=== PATIENT | male | born 1970 | race African-American/Black ===

== ENCOUNTER → 2016-08-20 | Outpatient (CLI) | payer OTHER ==
--- NOTE | 2016-08-20 17:32 | CARD ---
APPROVED REPORT EXAM: Two-dimensional and M-mode echocardiogram with Doppler and color Doppler. Other Information Quality : Average Rhythm : NSR INDICATION Cardiac Disease: CAD 2D DIMENSIONS RVDd3.2 (2.9-3.5cm)Left Atrium(2D)3.4 (1.6-4.0cm) IVSd1.1 (0.7-1.1cm)Aortic Root(2D)3.1 (2.0-3.7cm) LVDd4.6 (3.9-5.9cm)LVOT Diameter2.2 (1.8-2.4cm) PWd1.1 (0.7-1.1cm)LVDs3.1 (2.5-4.0cm) FS (%) 31.0 %SV55.9 ml LVEF(%)58.8 (>50%) Aortic Valve AoV Peak Kendell.102.9cm/sAoV VTI21.2cm AO Peak GR.4.2mmHgLVOT Peak Kendell.87.5cm/s LVOT VTI 16.68cmAO Mean GR.3mmHg RUBEN (VMAX)3.14kn7RQN (VTI)3.04cm2 Mitral Valve MV E Pxeaopsz73.4cm/sMV E Peak Gr.4mmHg MV DECEL [id number] A Qxtxsejj62.9cm/s MV E Mean Gr.1mmHgMV OWD55wr E/A Ratio0.8MV A Tnfxpwtj19ia MVA (PHT)3.84cm2 Tricuspid Valve TR P. Wmrwrwvj223to/sRAP NGDSDNQP8meTd TR Peak Gr.85taApXDOQ41yjLc LEFT VENTRICLE The left ventricle is normal size. There is normal left ventricular wall thickness. Left ventricle sy stolic function is normal. The Ejection Fraction is 55-60%. There is normal LV segmental wall motion. The left ventricular diastolic function and filling is normal for age. There is no ventricular septa l defect visualized. RIGHT VENTRICLE The right ventricle is normal size. The right ventricular systolic function is normal. ATRIA The left atrium size is normal. The right atrium size is normal. The interatrial septum is intact wit h no evidence for an atrial septal defect or patent foramen ovale as noted on 2-D or Doppler imaging. AORTIC VALVE The aortic valve is normal in structure and function. The aortic valve is trileaflet. Doppler and Col or Flow revealed no significant aortic regurgitation. There is no significant aortic valvular stenosi s. MITRAL VALVE The mitral valve is normal in structure and function. There is no mitral valve stenosis. Doppler and Color Flow revealed no mitral valve regurgitation noted. TRICUSPID VALVE The tricuspid valve is normal in structure and function. Doppler and Color Flow revealed trace to mil d tricuspid regurgitation. The PA pressure was estimated at 25 mmHg. There is no tricuspid valve sten osis. PULMONIC VALVE The pulmonary valve is normal in structure and function. Doppler and Color Flow revealed trace pulmon ic valvular regurgitation. There is no pulmonic valvular stenosis. GREAT VESSELS The aortic root is normal in size. Normal pulmonary venous flow (Doppler). The IVC is normal in size and collapses >50% with inspiration. PERICARDIAL EFFUSION There is no evidence of significant pericardial effusion. Critical Notification Critical Value: No <Conclusion> Left ventricle systolic function is normal. The Ejection Fraction is 55-60%. There is normal LV segmental wall motion.
== END | disposition home or self-care (01) ==
LOC: NM 08:19
PROVIDERS: ATTEND Internal Medicine Cardiovascular Disease
DX: I25.10 Atherosclerotic heart disease of native coronary artery without angina pectoris (principal)
CPT/HCPCS: 93306

== ENCOUNTER → 2016-08-22 | Outpatient (CLI) | payer OTHER ==
[2016-08-22] MEDS: REGADENOSON 0.4 MG/5 ML DISP.SYRIN. IV ONE (09:41)
--- NOTE | 2016-08-22 15:22 | RAD ---
APPROVED REPORT Test Type: Pharmacological Stress Nurse/Tech: Megan Solis Indications: CAD Cardiac History: See Electronic Medical Record Resting Heart Rate: 65 bpm Resting Blood Pressure: 137/78mmHg Pretest Chest Pain: None Pharm. Details Pharmacologic stress testing was performed using 0.4mg per 5ml of regadenoson given intravenously ove r 7-10 seconds. Stress Symptoms Slight dyspnea POST EXERCISE Max HR: 93 bpm Max Blood Pressure: 129/71mmHg Blood Pressure response to exercise: Normal blood pressure response during stress. Heart Rate response to exercise: Increase (normal) Chest Pain: No. Arrhythmia: No. ST Change: No. INTERPRETATION Stress EKG Conclusion: Baseline EKG showed sinus rhythm. No ischemic changes at peak stress. No arr hythmias. Imaging Protocol IMAGE PROTOCOL: Rest Tc-99m/stress Tc-99m 1 day Rest: Stress: Viability: Radiopharm.Tc99m AkooaiohyPi09t Sestamibi Vobq89rXp 34mCi Duration 20min. 15min. Img Date 08/22/2016 08/22/2016 Inj-Img Tfab00edy. 60min. Rest Admin Site:IV - Right AntecubitalAdministrator: RT Digna (R)(N) Stress Admin Site: IV - Right AntecubitalAdministrator: RT Digna (R)(N) STRESS DATA End Diast. Vol.113.0mlAv. Heart Rate77.0bpm LVEDV index BSA2.0mlCardiac Output0.1L/min End Syst. Vol.30.0mlCO Index BSA6.5L/min LVESV index BSA0.0mlMyocardial Pprb992.0g Eject. Brilqfwn62.0% Stress Rates Pk. Fill Rate2.76EDV/secLVtime Pk. Fill 198.91msec Pk. Empty Rate3.81ESV/secLVtime Pk. Downx958.51msec 05/07 Pk. Fill1.85EDV/sec Stress Scores Regional WT0.00Summed WT0.00 Regional WM0.00Summed WM0.00 Study quality was good. Left Ventricular size was Normal at Rest and Stress. Lung uptake was Normal. Left Ventricular ejection fraction is 73%. The rest and stress images show normal perfusion, normal contraction and thickening. LV Perf. Quant 17 Seg. SSS3.00 17 Seg. SRS1.00 17 Seg. SDS2.00 Stress Defect Extent (% LAD)0.00Rest Defect Extent (% LAD)0.00Rev. Defect Extent (% LAD)0.00 Stress Defect Extent (% LCX) 26.30Rest Defect Extent (% LCX)5.00Rev. Defect Extent (% LCX)2.50 Stress Defect Extent (% RCA)0.00Rest Defect Extent (% RCA)0.00Rev. Defect Extent (% RCA)0.00 Stress Defect Extent (% BRYN)4.60Rest Defect Extent (% BRYN)0.90Rev. Defect Extent (% BRYN)0.40 Conclusion 1. Regadenoson cardioisotope stress test did not show any evidence of ischemia or infarct. 2. Normal left ventricular systolic function with ejection fraction calculated at 73%. 3. Low risk for cardiac events.
== END | disposition home or self-care (01) ==
LOC: NM 08:14
PROVIDERS: ATTEND Internal Medicine Cardiovascular Disease
DX: I49.5 Sick sinus syndrome (principal); I25.10 Atherosclerotic heart disease of native coronary artery without angina pectoris
CPT/HCPCS: 78452; 93017; 96374; 96375; 96376; A9500; J2785

== ENCOUNTER → 2017-05-14 | Outpatient (CLI) | payer OTHER | END | disposition home or self-care (01) | LOC: SURG 12:07 | PROVIDERS: ATTEND Anesthesiology Pain Medicine | DX: M51.36 Other intervertebral disc degeneration, lumbar region (principal); M43.06 Spondylolysis, lumbar region; I25.10 Atherosclerotic heart disease of native coronary artery without angina pectoris; E11.9 Type 2 diabetes mellitus without complications | CPT/HCPCS: 99214 ==

== ENCOUNTER → 2017-10-20 | Outpatient (CLI) | payer OTHER ==
[~2017-10-20] MED LIST: ALBU8.5H8 INH; ASPI81TA50 PO; CALC-157 PO; CETI10TA22 PO; DOCU-109 PO; DULO30CA2 PO; ESOM20CA PO; FLUT9.9S NS; GABA600T2 PO; LIPITOR80 MG PO; META-21 PO; METF500T9 PO; METO-239 PO; MONT10TA9 PO; OLOP2.5D EACHEYE; OXYC-323 PO; OXYC10TA45 PO; RIZA10TA PO; TRAZ50TA15 PO; ZOLP10TA PO
[2017-10-20 13:10] LABS: BASO % 1 % (0-3); EOS # 0.3 x10^3/uL (0.0-0.7); EOS % 5 % (0-3); HEMATOCRIT 41.8 % (39.0-53.0); HEMOGLOBIN 13.9 g/dL (13.0-17.5); LYMPH # 2.3 x10^3/uL (1.0-4.8); LYMPH % 49 % (24-48); MEAN CORPUSCULAR HEMOGLOBIN 29 pg (25-35); MEAN CORPUSCULAR HGB CONC 33 g/dL (31-37); MEAN CORPUSCULAR VOLUME 87 fL (79-100); MONO # 0.5 x10^3/uL (0.0-1.1); MONO % 10 % (0-9); NEUT # 1.7 x10^3uL (1.8-7.7); NEUT % 36 % (31-73); PLATELET COUNT 278 x10^3/uL (140-400); RED BLOOD COUNT 4.83 x10^6/uL (4.30-5.70); RED CELL DISTRIBUTION WIDTH 14.8 % (11.5-14.5); WHITE BLOOD COUNT 4.8 x10^3/uL (4.0-11.0)
[2017-10-20 13:26] LABS: BILIRUBIN,URINE NEG (NEG); CLARITY,URINE CLEAR; COLOR,URINE YELLOW; GLUCOSE,URINE NEG (NEG); NITRITE,URINE NEG (NEG); UROBILINOGEN,URINE 0.2 mg/dL (0.2 mg/dL)
[2017-10-20 13:28] LABS: BACTERIA,URINE 0 /HPF (0-FEW); RBC,URINE RARE /HPF (0-2); SQUAMOUS EPITHELIAL CELL,UR FEW /LPF; WBC,URINE RARE /HPF (0-4)
== END | disposition home or self-care (01) ==
LOC: LAB 12:22
PROVIDERS: ATTEND Anesthesiology Pain Medicine
DX: Z01.818 Encounter for other preprocedural examination (principal)
CPT/HCPCS: 36415; 81001; 85025; 87641

== ENCOUNTER → 2017-10-22 | Day surgery (SDC) | payer OTHER ==
[~2017-10-22] MED LIST changes: +0.9 % SODIUM CHLORIDE 10 ML VIAL ONE; +BACITRACIN 50,000 UNIT VIAL. ONE; +BUPIVACAINE MPF 0.5% 30 ML VIAL. ONE; +GLYCOPYRROLATE 1 MG/5 ML VIAL. ONE; +HYDROcodone/APAP 7.5/325MG 1 TAB TABLET PO ONE; +HYDROmorphone PF 1 MG/ML DISP.SYRIN ONE; +IV RINGERS SOLUTION,LACTATED 1,000 ML IV SCH; +LIDOCAINE 1% PF 30 ML VIAL. ONE; +LIDOCAINE 2% PF Vial for OR 5 ML VIAL. ONE; +LIDOCAINE 2% TOPICAL JELLY 5GM TUBE. TP ONE; +MIDAZOLAM HCL PF 2 MG/2 ML VIAL. ONE; +NEOSTIGMINE 10 MG/10 ML VIAL. ONE; +ONDANSETRON PF 4 MG/2 ML VIAL. ONE; +PROPOFOL 10,000 MCG/ML (20ML) VIAL IV ONE; +ROCURONIUM 50 MG/5 ML VIAL. ONE; +SUCCINYLCHOLINE 200 MG/10 ML VIAL. ONE; +TRAZ-85 PO; -TRAZ50TA15 PO; +fentaNYL PF 250 MCG/5 ML VIAL ONE
[2017-10-22 16:32] VITALS: BP 135/78
== END ==
LOC: SURG 11:01
PROVIDERS: ATTEND Anesthesiology Pain Medicine
DX: M51.36 Other intervertebral disc degeneration, lumbar region (principal); I25.2 Old myocardial infarction; I25.10 Atherosclerotic heart disease of native coronary artery without angina pectoris; K21.9 Gastro-esophageal reflux disease without esophagitis; K44.9 Diaphragmatic hernia without obstruction or gangrene; E11.9 Type 2 diabetes mellitus without complications; F41.9 Anxiety disorder, unspecified; F17.210 Nicotine dependence, cigarettes, uncomplicated; Z98.890 Other specified postprocedural states; Z95.5 Presence of coronary angioplasty implant and graft; Z87.39 Personal history of other diseases of the musculoskeletal system and connective tissue; Z79.82 Long term (current) use of aspirin; Z72.89 Other problems related to lifestyle
CPT/HCPCS: 63650; 82947; J0330; J0690; J1170; J2001; J2250; J2405; J2704; J2710; J3010; J3490; J7120; L8679

== ENCOUNTER 2017-11-04 15:23 | Emergency (ER) | payer OTHER ==
[~2017-11-04] VITALS: Ht 182.9 cm; Wt 107.6 kg
[~2017-11-04 15:23] MED LIST changes: -0.9 % SODIUM CHLORIDE 10 ML VIAL ONE; -BACITRACIN 50,000 UNIT VIAL. ONE; -BUPIVACAINE MPF 0.5% 30 ML VIAL. ONE; -GLYCOPYRROLATE 1 MG/5 ML VIAL. ONE; -HYDROcodone/APAP 7.5/325MG 1 TAB TABLET PO ONE; -HYDROmorphone PF 1 MG/ML DISP.SYRIN ONE; -IV RINGERS SOLUTION,LACTATED 1,000 ML IV SCH; -LIDOCAINE 1% PF 30 ML VIAL. ONE; -LIDOCAINE 2% PF Vial for OR 5 ML VIAL. ONE; -LIDOCAINE 2% TOPICAL JELLY 5GM TUBE. TP ONE; -MIDAZOLAM HCL PF 2 MG/2 ML VIAL. ONE; -NEOSTIGMINE 10 MG/10 ML VIAL. ONE; -ONDANSETRON PF 4 MG/2 ML VIAL. ONE; -PROPOFOL 10,000 MCG/ML (20ML) VIAL IV ONE; -ROCURONIUM 50 MG/5 ML VIAL. ONE; -SUCCINYLCHOLINE 200 MG/10 ML VIAL. ONE; -fentaNYL PF 250 MCG/5 ML VIAL ONE
--- NOTE | 2017-11-04 16:50 | PHYS DOC ---
Past History Past Medical History: Diabetes, MD Past Surgical History: Other Alcohol Use: None Drug Use: None Adult General Chief Complaint Chief Complaint: WOUND CHECK HPI HPI 37-year-old male presents with skin lesion that appeared to days ago. The patient recently had a spinal stimulator surgically implanted. Yesterday, he noticed that he had a 1 cm murmur once a meter by half centimeter thick lesion sticking out of the skin. It appeared to be clear. The patient decided to come to the ER today because the lesion changed to a dark purplish color and he did note that was problem. He does not have any fever or chills. He has had no complications from his surgery. His incisions have had some serous drainage but that has stopped. Review of Systems Review of Systems Constitutional: Denies fever or chills [] Eyes: Denies change in visual acuity, redness, or eye pain [] HENT: Denies nasal congestion or sore throat [] Respiratory: Denies cough or shortness of breath [] Cardiovascular: No additional information not addressed in HPI [] GI: Denies abdominal pain, nausea, vomiting, bloody stools or diarrhea [] : Denies dysuria or hematuria [] Musculoskeletal: Denies back pain or joint pain [] Integument: skin lesion[] Neurologic: Denies headache, focal weakness or sensory changes [] Endocrine: Denies polyuria or polydipsia [] All other systems were reviewed and found to be within normal limits, except as documented in this note. Allergies Allergies Allergies Coded Allergies Type Severity Reaction Last Updated Verified No Known Drug Allergies 11/04/17 No Physical Exam Physical Exam Constitutional: Well developed, well nourished, no acute distress, non-toxic appearance. [] HENT: Normocephalic, atraumatic, bilateral external ears normal, oropharynx moist, no oral exudates, nose normal. [] Eyes: PERRLA, EOMI, conjunctiva normal, no discharge. [] Neck: Normal range of motion, no tenderness, supple, no stridor. [] Cardiovascular:Heart rate regular rhythm, no murmur [] Lungs & Thorax: Bilateral breath sounds clear to auscultation [] Abdomen: Bowel sounds normal, soft, no tenderness, no masses, no pulsatile masses. [] Skin: One centimeter by 1 cm lesion on the left, lower, lateral back. The mass is 0.5 cm deep and is fluctuant. It appears to have clear fluid inside. On tenuous drainage. Surgical incisions are clean dry and intact.[] Back: No tenderness, no CVA tenderness. [] Extremities: No tenderness, no cyanosis, no clubbing, ROM intact, no edema. [] Neurologic: Alert and oriented X 3, normal motor function, normal sensory function, no focal deficits noted. [] Psychologic: Affect normal, judgement normal, mood normal. [] Current Patient Data Vital Signs Vital Signs Date Time Temp Pulse Resp B/P (MAP) Pulse Ox O2 Delivery O2 Flow Rate FiO2 11/04/17 15:25 98.6 61 18 97 Room Air EKG EKG [] Radiology/Procedures Radiology/Procedures [] Course & Med Decision Making Course & Med Decision Making Pertinent Labs and Imaging studies reviewed. (See chart for details) I'm unsure why the patient has this skin lesion. It appears to have clear fluid in it. I offered to drain the lesion for the patient to ensure that it was not purulent. He agreed. I made a small decision with an 11 blade. Serous fluid was all that was expressed. The lesion drained about 1 mL. I covered it with a large Band-Aid. There were no consultations. No evidence infection, so antibiotics were not indicated. [] Dragon Disclaimer Dragon Disclaimer This electronic medical record was generated, in whole or in part, using a voice recognition dictation system. Departure Departure: Referrals: YVONNE CESPEDES DO, M[facility] (PCP) NATHALIA JOLLY DO Nov 04, 2017 16:50
[2017-11-04 16:59] VITALS: BP 123/78
== END 2017-11-04 16:59 | disposition home or self-care (01) ==
LOC: ER 15:23
DX: L98.8 Other specified disorders of the skin and subcutaneous tissue (principal); E11.9 Type 2 diabetes mellitus without complications; I25.2 Old myocardial infarction
CPT/HCPCS: 10060; 99283

== ENCOUNTER → 2019-05-13 | Outpatient (CLI) | payer OTHER ==
[~2019-05-13] MED LIST changes: +ALBU2.5V8 INH; -ALBU8.5H8 INH; +BUPIVACAINE MPF 0.25% 10 ML VIAL. ONE; -CETI10TA22 PO; +CETI10TA24 PO; +DEXAMETHASONE SOD PHOS 10 MG/ML VIAL ONE; -GABA600T2 PO; +GABA600T7 PO; +IOHEXOL 300 MG/ML 50 ML VIAL. ONE; +LIDOCAINE 1% PF 30 ML VIAL. ONE; +METF500T11 PO; -METF500T9 PO; +MONT10TA80 PO; -MONT10TA9 PO; -OXYC-323 PO; -OXYC10TA45 PO; +OXYC10TA46 PO; +OXYC1TAB15 PO; +TRAZ-120 PO; -TRAZ-85 PO
[2019-05-13 15:56] VITALS: BP 141/96
== END | disposition home or self-care (01) ==
LOC: SURG 14:58
PROVIDERS: ATTEND Anesthesiology Pain Medicine
DX: M54.16 Radiculopathy, lumbar region (principal); M19.90 Unspecified osteoarthritis, unspecified site; F17.210 Nicotine dependence, cigarettes, uncomplicated; M54.5 Low back pain; M54.9 Dorsalgia, unspecified; G89.4 Chronic pain syndrome; Z98.890 Other specified postprocedural states; Z79.899 Other long term (current) drug therapy
CPT/HCPCS: 64483; 64484; J1100; J2001; J3490; Q9967

== ENCOUNTER 2021-02-14 20:54 | Emergency (ER) | payer OTHER ==
[~2021-02-14] VITALS: Ht 210.8 cm; Wt 118.0 kg
[~2021-02-14 20:54] MED LIST changes: -BUPIVACAINE MPF 0.25% 10 ML VIAL. ONE; -CETI10TA24 PO; +CETI10TA74 PO; -DEXAMETHASONE SOD PHOS 10 MG/ML VIAL ONE; -IOHEXOL 300 MG/ML 50 ML VIAL. ONE; -LIDOCAINE 1% PF 30 ML VIAL. ONE; +METF-658 PO; -METF500T11 PO; -OLOP2.5D EACHEYE; +OLOP2.5D12 EACHEYE
[2021-02-14] MEDS ORDERED: ASPIRIN CHEWABLE 81 MG TABLET. PO ONE (21:30)
[2021-02-14] MEDS ORDERED: KETOROLAC 30 MG/ML VIAL. IVP ONE (21:30)
[2021-02-14 21:38] LABS: BASO % 0 % (0-3); EOS # 0.2 x10^3/uL (0.0-0.7); EOS % 3 % (0-3); HEMATOCRIT 39.7 % (39.0-53.0); HEMOGLOBIN 13.4 g/dL (13.0-17.5); LYMPH # 1.9 x10^3/uL (1.0-4.8); LYMPH % 35 % (24-48); MEAN CORPUSCULAR HEMOGLOBIN 29 pg (25-35); MEAN CORPUSCULAR HGB CONC 34 g/dL (31-37); MEAN CORPUSCULAR VOLUME 87 fL (79-100); MONO # 0.4 x10^3/uL (0.0-1.1); MONO % 7 % (0-9); NEUT % 54 % (31-73); PLATELET COUNT 269 x10^3/uL (140-400); RED BLOOD COUNT 4.55 x10^6/uL (4.30-5.70); RED CELL DISTRIBUTION WIDTH 14.2 % (11.5-14.5); WHITE BLOOD COUNT 5.5 x10^3/uL (4.0-11.0)
[2021-02-14 21:45] LABS: CALCIUM 9.2 mg/dL (8.5-10.1); CREATININE 1.1 mg/dL (0.7-1.3); GFR 85.7; POTASSIUM 3.9 mmol/L (3.5-5.1)
--- NOTE | 2021-02-14 21:57 | RAD ---
Exam: Chest one view INDICATION: Chest pain TECHNIQUE: Frontal view of the chest Comparisons: None FINDINGS: The cardiomediastinal silhouette and pulmonary vessels are within normal limits. The lung and pleural spaces are clear. IMPRESSION: No acute cardiopulmonary process. Electronically signed by: Domenic Murry MD (02/14/2021 9:55 PM) DEMI
[2021-02-14 22:01] LABS: ALBUMIN 3.7 g/dL (3.4-5.0); ALBUMIN/GLOBULIN RATIO 1.1 (1.0-1.7); PHOSPHORUS 3.3 mg/dL (2.6-4.7); TOTAL BILIRUBIN 0.3 mg/dL (0.2-1.0)
--- NOTE | 2021-02-14 22:11 | PHYS DOC ---
Past History Past Medical History: Diabetes, VA (RICHMOND TRAN APRN) Past Surgical History: Other (RICHMOND TRAN APRN) Alcohol Use: None Drug Use: None (RICHMOND TRAN APRN) Adult General Chief Complaint Chief Complaint: CHEST PAIN HPI HPI Patient is a 50-year-old male complains of left-sided chest pain and shoulder pain for the past 2 days. Patient reports he replaced a new sink in his house just prior to his onset of pain. Patient reports his pain a constant 4 out of 10. Patient states he had a VA with stent placement in 2008, states this pain is much different than his cardiac chest pain. Patient states it feels like a pulled muscle. Patient denies shortness of breath, diaphoretic episodes, nausea, vomiting or diarrhea. Patient denies other physical complaints or physical merced rns. (RICHMOND TRAN APRN) Review of Systems Review of Systems 14 body systems of review of systems have been reviewed. See HPI for pertinent positives and negative responses, otherwise all other systems are negative, nonpertinent or noncontributory. Constitutional: Negative except as outlined in HPI above. Skin: Negative except as outlined in HPI above. Eyes: Negative except as outlined in HPI above. HENT: Negative except as outlined in HPI above. Respiratory: Negative except as outlined in HPI above. Cardiovascular: Negative except as outlined in HPI above. GI: Negative except as outlined in HPI above. : Negative except as outlined in HPI above. Musculoskeletal: Negative except as outlined in HPI above. Integument: Negative except as outlined in HPI above. Neurologic: Negative except as outlined in HPI above. Endocrine: Negative except as outlined in HPI above. Lymphatic: Negative except as outlined in HPI above. Psychiatric: Negative except as outlined in HPI above. (RICHMOND TRAN APRN) Current Medications Current Medications Current Medications Medications (Trade) Dose Ordered Sig/Alissa Start Time Stop Time Status Last Admin Dose Admin Aspirin (Aspirin Chewable) 243 mg 1X ONCE 02/14/21 21:30 02/14/21 21:31 DC 02/14/21 21:27 243 MG Ketorolac Tromethamine (Toradol 30mg Vial) 30 mg 1X ONCE 02/14/21 21:30 02/14/21 21:31 DC 02/14/21 21:27 30 MG (RICHMOND TRAN APRN) Allergies Allergies Allergies Coded Allergies Type Severity Reaction Last Updated Verified No Known Drug Allergies 05/13/19 No (RICHMOND TRAN APRN) Physical Exam Physical Exam Constitutional: Well developed, well nourished, no acute distress, non-toxic appearance. 50-year-old male in no apparent distress. HENT: Normocephalic, atraumatic. Eyes: Conjunctiva normal, no discharge. Neck: Normal range of motion, no stridor. Cardiovascular: No cyanosis appreciated, distal cap refill less than 2 seconds. Regular rate and rhythm, heart sounds S1-S2 to auscultation. Lungs & Thorax: Patient is in no respiratory distress, no audible adventitious lung sounds appreciated. No increased pain to palpation of the anterior thorax. No adventitious lung sounds appreciated per auscultation, lung sounds clear all lung gaspar. Abdomen: Nontender, no abnormalities noted. Skin: Warm, dry, no erythema, no rash. Back: No tenderness, no deformities. Extremities: No tenderness, no cyanosis, no clubbing, ROM intact, no edema. Patient reported pain relief during palpation of left shoulder muscular structu res. Neurologic: Alert and oriented X 3, normal motor function, normal sensory function, no focal deficits noted. Psychologic: Affect normal, judgement normal, mood normal. (RICHMOND TRAN APRN) Current Patient Data Vital Signs Vital Signs Date Time Temp Pulse Resp B/P (MAP) Pulse Ox O2 Delivery O2 Flow Rate FiO2 02/14/21 21:01 98.2 69 16 160/93 (115) 98 Room Air Lab Results Laboratory Tests Test 02/14/21 21:25 White Blood Count 5.5 x10^3/uL Red Blood Count 4.55 x10^6/uL Hemoglobin 13.4 g/dL Hematocrit 39.7 % Mean Corpuscular Volume 87 fL Mean Corpuscular Hemoglobin 29 pg Mean Corpuscular Hemoglobin Concent 34 g/dL Red Cell Distribution Width 14.2 % Platelet Count 269 x10^3/uL Neutrophils (%) (Auto) 54 % Lymphocytes (%) (Auto) 35 % Monocytes (%) (Auto) 7 % Eosinophils (%) (Auto) 3 % Basophils (%) (Auto) 0 % Neutrophils # (Auto) 3.0 x10^3uL Lymphocytes # (Auto) 1.9 x10^3/uL Monocytes # (Auto) 0.4 x10^3/uL Eosinophils # (Auto) 0.2 x10^3/uL Basophils # (Auto) 0.0 x10^3/uL Sodium Level 140 mmol/L Potassium Level 3.9 mmol/L Chloride Level 105 mmol/L Carbon Dioxide Level 28 mmol/L Anion Gap 7 Blood Urea Nitrogen 9 mg/dL Creatinine 1.1 mg/dL Estimated GFR (Cockcroft-Gault) 85.7 BUN/Creatinine Ratio 8 Glucose Level 162 mg/dL Calcium Level 9.2 mg/dL Phosphorus Level 3.3 mg/dL Magnesium Level 2.0 mg/dL Total Bilirubin 0.3 mg/dL Aspartate Amino Transf (AST/SGOT) 21 U/L Alanine Aminotransferase (ALT/SGPT) 46 U/L Alkaline Phosphatase 75 U/L Creatine Kinase 144 U/L Creatine Kinase MB (Mass) 0.9 ng/mL Creatine Kinase MB Relative Index 0.6 % Troponin I Quantitative < 0.017 ng/mL Total Protein 7.0 g/dL Albumin 3.7 g/dL Albumin/Globulin Ratio 1.1 Lipase 186 U/L Current Medications Medications (Trade) Dose Ordered Sig/Alissa Route PRN Reason Start Time Stop Time Status Last Admin Dose Admin Aspirin (Aspirin Chewable) 243 mg 1X ONCE PO 02/14/21 21:30 02/14/21 21:31 DC 02/14/21 21:27 Ketorolac Tromethamine (Toradol 30mg Vial) 30 mg 1X ONCE IVP 02/14/21 21:30 02/14/21 21:31 DC 02/14/21 21:27 Laboratory Tests Test 02/14/21 21:25 White Blood Count 5.5 x10^3/uL (4.0-11.0) Red Blood Count 4.55 x10^6/uL (4.30-5.70) Hemoglobin 13.4 g/dL (13.0-17.5) Hematocrit 39.7 % (39.0-53.0) Mean Corpuscular Volume 87 fL (79-100) Mean Corpuscular Hemoglobin 29 pg (25-35) Mean Corpuscular Hemoglobin Concent 34 g/dL (31-37) Red Cell Distribution Width 14.2 % (11.5-14.5) Platelet Count 269 x10^3/uL (140-400) Neutrophils (%) (Auto) 54 % (31-73) Lymphocytes (%) (Auto) 35 % (24-48) Monocytes (%) (Auto) 7 % (0-9) Eosinophils (%) (Auto) 3 % (0-3) Basophils (%) (Auto) 0 % (0-3) Neutrophils # (Auto) 3.0 x10^3uL (1.8-7.7) Lymphocytes # (Auto) 1.9 x10^3/uL (1.0-4.8) Monocytes # (Auto) 0.4 x10^3/uL (0.0-1.1) Eosinophils # (Auto) 0.2 x10^3/uL (0.0-0.7) Basophils # (Auto) 0.0 x10^3/uL (0.0-0.2) (RICHMOND TRAN APRN) EKG EKG EKG performed at 2100 by ED nursing staff shows a normal sinus rhythm with left axis deviation, heart rate 66 bpm, OK interval 0.130, QTc interval 0.423, no acute STEMI, no ACS, no acute ischemia appreciated, EKG interpreted by ED attending physician Dr. Roque. (RICHMOND TRAN APRN) Radiology/Procedures Radiology/Procedures PATIENT: PINKY VÁSQUEZ ACCOUNT: [id number] : 1970 LOCATION: ER AGE: 50 SEX: M EXAM STATUS: PRE ER ORD. PHYSICIAN: RICHMOND TRAN APRN REASON: Chest pain PROCEDURE: CHEST AP ONLY Exam: Chest one view INDICATION: Chest pain TECHNIQUE: Frontal view of the chest Comparisons: None FINDINGS: The cardiomediastinal silhouette and pulmonary vessels are within normal limits. The lung and pleural spaces are clear. IMPRESSION: No acute cardiopulmonary process. Electronically signed by: Domenic Murry MD (02/14/2021 9:55 PM) DEMI (RICHMOND TRAN APRN) Heart Score C/O Chest Pain: Yes HEART Score for Chest Pain: HEART Score for Chest Pain Response (Comments) Value History Slighlty/Non-Suspicious 0 ECG Normal 0 Age >45 - < 65 1 Risk Factors 1 or 2 Risk Factors 1 Troponin < Normal Limit 0 Total 2 Risk Factors: Risk Factors: DM, Current or recent (<one month) smoker, HTN, HLP, family history of CAD, obesity. Risk Scores: Risk Factors: DM, Current or recent (<one month) smoker, HTN, HLP, family hi story of CAD, obesity. (RICHMOND TRAN APRN) Course & Med Decision Making Course & Med Decision Making Pertinent Labs and Imaging studies reviewed. (See chart for details) 50-year-old male, vital signs reviewed, presents emergency department concerning left-sided chest pain and left shoulder pain. Physical examination consistent wi th musculoskeletal strain/pain. However with patient's history of VA with stent placement in 2008 will perform cardiorespiratory work-up. We will give 243 mg aspirin related to patient's daily 81 mg aspirin and stating he took his aspirin today prior to arrival to the ER, will give 30 mg IV Toradol for musculoskeletal pain component. Patient is EKG and cardiac enzymes unremarkable, chest x-ray unremarkable. Upon reevaluation of the patient, patient reports pain relief with pain medication given. Discussed with patient pain is most likely musculoskeletal in nature, patient agrees, patient reports if he turns his head in a certain way or takes a deep breath he does feel a change in pain. Patient states he feels comfortable going home and is relieved that his cardiac enzymes and cardiac work-up were nonconcerning. Discussed with patient strict return to ER precautions and concerns. Discussed with the patient all findings and diagnostic testing as well as the need to follow-up with their primary care provider for further evaluation and treatment or return to the ED if any new or worsening symptoms. Strict return precautions were also discussed at length, the patient voiced understanding and agreement with the discharge planning. The patient was nontoxic in appearance, in no apparent distress, and hemodynamically stable at the time of disposition. (RICHMOND TRAN APRN) Course & Med Decision Making Did not see or evaluate patient. Did not discuss patient with POT FISHER. Agree with POT FISHER work-up and disposition per note. (FANI ROQUE MD) Dragon Disclaimer Dragon Disclaimer This electronic medical record was generated, in whole or in part, using a voice recognition dictation system. (RICHMOND TRAN APRN) Departure Departure: Impression: Primary Impression: Musculoskeletal chest pain Disposition: HOME / SELF CARE / HOMELESS Condition: GOOD Referrals: HIMA HUYNH MD (PCP) Patient Instructions: Chest Pain (Nonspecific), Chest Wall Pain Additional Instructions: You were seen today in the emergency department for chest pain. A full cardiorespiratory work-up was performed today. Your results are reassuring and that you are not having a heart attack or VA, you do not have signs of a pneumonia. Your pain is most likely musculoskeletal in nature as we discussed. Please continue to take cogy-jku-nwgdpyo ibuprofen or other NSAID type pain medication to help with pain relief. Please follow-up with your primary care physician for ongoing pain management. Thank you for visiting our Emergency Department. It was a pleasure taking care of you today in the emergency department and we appreciate you trusting us with your care. If any additional problems come up don't hesitate to return to visit us. Please follow up with your primary care provider so they can plan additional care if needed and know about the problem that you had. If symptoms worsen come back to the Emergency Department. Any concerning symptoms that start such as chest pain, shortness of air, weakness or numbness on one side of the body, running high fevers or any other concerning symptoms return to the ER. EMERGENCY DEPARTMENT GENERAL DISCHARGE INSTRUCTIONS Thank you for coming to [facility] (ED) today and trusting us with you care. We trust that you had a positivie experience in our Emergency Department. If you wish to speak to the department management, you may call the director at [phone]. YOUR FOLLOW UP INSTRUCTIONS ARE FOLLOWS: 1. Do you have a private Doctor? If you do not have a private doctor, please ask for a resource list of physicians or clinics that may be able to assist you with follow up care. 2. The Emergency Physician has interpreted your x-rays. The X-Ray specialist will also review them. If there is a change in the findings, you will be notified in 48 hours when at all possible. 3. A lab test or culture has been done, your results will be reviewed and you will be notified if you need a change in treatment. ADDITIONAL INSTRUCTIONS AND INFORMATION: 1. Your care today has been supervised by a physician who is specially trained in emergency care. Many problems require more than one evaluation for a complete diagnosis and treatment. We recommend that you schedule your follow up appointment as recommended to ensure complete treatment of you illness or injury. If you are unable to obtain follow up care and continue to have a problem, or if your condition worsens, we recommend that you return to the ED. 2. We are not able to safely determine your condition over the phone nor are we able to give sound medical advice over the phone. For these safety reasons, if you call for medical advice we will ask you to come to the ED for further evaluation. 3. If you have any questions regarding these discharge instructions please call the ED at [phone]. SAFETY INFORMATION: In the interest of safety, wellness, and injury prevention; we encourage you to wear your sealbelt, if you smoke; quite smoking, and we encourage family to use a protective helmet for bicycling and other sporting events that present an increased risk for head injury. IF YOUR SYMPTOMS WORSEN OR NEW SYMPTOMS DEVELOP, OR YOU HAVE CONCERNS ABOUT YOUR CONDITION; OR IF YOUR CONDITION WORSENS WHILE YOU ARE WAITING FOR YOUR FOLLOW UP APPOINTMENT; EITHER CONTACT YOUR PRIMARY CARE DOCTOR, THE PHYSICIAN WHOSE NAME AND NUMBER YOU WERE GIVEN, OR RETURN TO THE ED IMMEDIATELY. RICHMOND TRAN APRN Feb 14, 2021 22:10 FANI ROQUE MD Feb 14, 2021 22:25
[2021-02-14 22:21] VITALS: BP 132/70
--- NOTE | 2021-02-14 23:55 | EKG ---
[address] [address] Test Date: 2021-02-14 Test Time: 21:00:20 Pat Name: PINKY VÁSQUEZ Department: Room: Gender: M [employer]visor: : 1970 Requested By: RICHMOND TRAN Order Number: [id number] Reading MD: Edson Adknis Measurements Intervals [place] Rate: 66 P: 43 CT: 130 QRS: -29 QRSD: 102 T: 24 QT: 402 QTc: 423 Interpretive Statements SINUS RHYTHM LEFTWARD AXIS NON SPECIFIC ST-T WAVE CHANGES Electronically Signed On 02-15-2021 15:56:41 CDT by Edson Adkins
== END 2021-02-14 22:22 | disposition home or self-care (01) ==
LOC: ER 20:54
DX: R07.89 Other chest pain (principal); M25.512 Pain in left shoulder
CPT/HCPCS: 36415; 71045; 80053; 82553; 83690; 83735; 84100; 84484; 85025; 93005; 96374; 99285; J1885